=== PATIENT | male | born 1965 | race American Indian/Alaskan Native ===

== ENCOUNTER 2020-02-26 10:01 | Outpatient (CLI) | payer OTHER ==
--- NOTE | 2020-02-26 11:25 | XRay Report ---
Lumbosacral SPINE 3 VIEWS INDICATION / CLINICAL INFORMATION: BACK PAIN. COMPARISON: None available. FINDINGS: VERTEBRAE: No acute fracture. No significant malalignment. DISC SPACES / FACET JOINTS:Moderate multilevel degenerative spondylosis. There is mild to moderate di sc space height loss throughout the lumbar spine, worst at L5-S1. PARASPINAL SOFT TISSUES:No significant abnormality. ADDITIONAL FINDINGS: None. Signer Name: Milad Diamond MD Signed: 02/26/2020 11:20 AM Workstation Name: [id number]
--- NOTE | 2020-02-26 11:26 | XRay Report ---
BILATERAL KNEE 4 VIEW(S) INDICATION / CLINICAL INFORMATION: RIGHT/LEFT KNEE PAIN COMPARISON: None available. FINDINGS: BONES / JOINT(S): No acute fracture or subluxation. Mild to moderate tricompartmental degenerative ar throsis bilaterally, worst in the medial compartments. SOFT TISSUES: Rounded metallic object within the posterior right calf soft tissues. ADDITIONAL FINDINGS: None. Signer Name: Milad Diamond MD Signed: 02/26/2020 11:21 AM Workstation Name: [id number]
--- NOTE | 2020-02-26 11:28 | XRay Report ---
BILATERAL SHOULDER 6 VIEW(S) INDICATION / CLINICAL INFORMATION: RIGHT/LEFT SHOULDER PAIN COMPARISON: None available. FINDINGS: BONES / JOINT(S): No acute fracture or subluxation. Mild bilateral glenohumeral joint degenerative ar throsis. SOFT TISSUES: No significant abnormality. ADDITIONAL FINDINGS: None. Signer Name: Milad Diamond MD Signed: 02/26/2020 11:23 AM Workstation Name: [id number]
== END 2020-02-26 10:02 | disposition home or self-care (01) ==
LOC: XRAY 10:01
PROVIDERS: ATTEND Internal Medicine
DX: M17.0 Bilateral primary osteoarthritis of knee (principal); M47.817 Spondylosis without myelopathy or radiculopathy, lumbosacral region
CPT/HCPCS: 72100